=== PATIENT | female | born 1965 ===

== ENCOUNTER 2019-05-03 07:17 | Emergency (ER) | payer OTHER ==
[~2019-05-03] VITALS: Ht 157.5 cm; Wt 58.1 kg
[2019-05-03] MEDS ORDERED: JARDIANCE10 MG (08:21)
[2019-05-03] MEDS ORDERED: METFORMIN 750MG (08:21)
[2019-05-03] MEDS ORDERED: ZITHROMAX500 MG PO (11:02)
[2019-05-03] MEDS ORDERED: TESSALON PERLE100 M1 PO (11:02)
[2019-05-03] MEDS ORDERED: MUCINEX DM ER1 EAC1 PO (11:02)
[2019-05-03] MEDS ORDERED: SYMBICORT 16010.2 GM IH (11:02)
== END 2019-05-03 11:03 ==
LOC: ER 07:17
DX: J06.9 Acute upper respiratory infection, unspecified (principal)